=== PATIENT | female | born 1990 | race Caucasian/White ===

== ENCOUNTER 2016-10-21 15:28 | Emergency (ER) | payer BC ==
[~2016-10-21] VITALS: Ht 154.9 cm; Wt 71.0 kg
[2016-10-21 15:31] VITALS: BP 111/77; PULSE 95; RESP 16; TEMP 98.4; O2SAT 97
--- NOTE | 2016-10-21 16:49 | PD ---
HPI Chief Complaint: Cold / Flu Symptoms Time Seen by Provider: 16:47 Travel History International Travel<30 days: No Contact w/Intl Traveler<30days: [place] Country Traveled to: [place] Traveled to known affect area: No History of Present Illness HPI 26-year-old female presents to the emergency department for evaluation of cough and nasal congestion for 1 week. Patient states that she traveled back from [place] last week and feels as though the change in cold weather may have brought on her symptoms. States that her cough has become productive and she feels as if she has chest tightness. States that last night she had subjective fever. States she has been taking Tylenol with minimal improvement of symptoms. She denies any headache, lightheadedness, dizziness, nausea, vomiting , diarrhea, chest pain, shortness of breath. Denies any history of lung disease or smoking. Denies , last menstrual period 1 month ago. No other complaints. PFSH Past Medical History Medical History: Denies Significant Hx Diminished Hearing: No Tetanus Vaccination: Unknown ?: Not LMP: 09/21/16 Past Surgical History Other Surgery: Yes (RIGHT WRIST) Social History Alcohol Use: Yes (SOC) Tobacco Use: No Substance Use: No Allergies-Medications (Allergen,Severity, Reaction): Coded Allergies: No Known Allergies (Unverified , 10/21/16) Reported Meds & Prescriptions Reported Meds & Active Scripts Active Zithromax Z-Chris (Azithromycin) 250 Mg Dspk 250 Mg PO DIRECTED 500 MG (2 tabs) day 1, then 1 tab days 2-5. Medrol Dosepak (Methylprednisolone) 4 Mg Dspk 4 Mg PO DIRECTED Per Pharmacist direction Review of Systems Except as stated in HPI: all other systems reviewed are Neg Physical Exam Narrative GENERAL: Well-nourished and well-developed pleasant patient in no acute distress. SKIN: Warm and dry. HEAD: Normocephalic and atraumatic. EYES: No injection, drainage, or hyphema noted. PERRLA. EOMI. ENT: No nasal drainage noted. Oropharynx is clear and the TMs are normal with good landmarks. NECK: Supple and the trachea is midline. No lymphadenopathy is noted throughout the cervical chains. CARDIOVASCULAR: Regular rate and rhythm. RESPIRATORY: Breath sounds are equal bilaterally with no accessory muscle use, wheezing, rhonchi, or crackles. MUSCULOSKELETAL: No obvious deformities, swelling, cyanosis, or ecchymosis is present throughout the upper and lower extremities. Patient has full range of motion without any signs of neurovascular compromise. NEUROLOGICAL: Awake, alert, and oriented. Normal speech and gait. Cranial nerves are grossly intact. Data Data Last Documented VS Vital Signs Date Time Temp Pulse Resp B/P Pulse Ox O2 Delivery O2 Flow Rate FiO2 10/21/16 15:31 98.4 95 16 111/77 97 Orders Ed Urine Pregnancytest Poc (10/21/16 16:49) [facility] Medical Decision Making Medical Screen Exam Complete: Yes Emergency Medical Condition: Yes Differential Diagnosis Bronchitis versus URI versus pneumonia versus sinusitis Narrative Course 26-year-old female presents to the emergency department for evaluation of productive cough and subjective fever. Patient is afebrile, vital signs are stable. Physical examination is essentially unremarkable. ED urine test is negative. Due to the fact the patient is having a worsening productive cough and had subjective fevers last night we'll treat her with a Z-Chris and a Medrol Dosepak. Advised to follow-up with her PCP. Diagnosis Primary Impression: Acute bronchitis Qualified Code: J20.9 - Acute bronchitis, unspecified organism Referrals: Primary Care Physician Patient Instructions: Acute Bronchitis (ED), General Instructions Additional Instructions: Take medications as prescribed with food and a full glass of water. Follow-up with your Primary Care Physician. Return to the ED for any acute worsening of symptoms. Med/Other Pt SpecificInfo: Prescription(s) given Scripts Azithromycin (Zithromax Z-Chris)250 Mg Avbp044 Mg PO DIRECTED #1 DSPK Ref 0 500 MG (2 tabs) day 1, then 1 tab days 2-5. Prov:Lalo Morgan MD 10/21/16 Methylprednisolone Dosepak (Medrol Dosepak)4 Mg Dspk4 Mg PO DIRECTED #1 DSPK Ref 0 Per Pharmacist direction Prov:Lalo Morgan MD 10/21/16 Disposition: 01 DISCHARGE HOME Condition: Stable Yen Ji Oct 21, 2016 16:49
[2016-10-21] MEDS ORDERED: MEDR4PAK PO (17:05)
[2016-10-21] MEDS ORDERED: ZITHTAB PO (17:05)
== END 2016-10-21 17:10 | disposition home or self-care (01) ==
LOC: PHEFT 15:28
DX: J20.9 Acute bronchitis, unspecified (principal); R07.89 Other chest pain
CPT/HCPCS: 84703; 99283